=== PATIENT | female | born 1955 | race American Indian/Alaskan Native ===

== ENCOUNTER 2016-08-05 06:19 | Emergency (ER) | payer MEDICAID ==
[2016-08-05 06:33] VITALS: BP 169/103
[2016-08-05 06:55] LABS: Basophils % (Auto) 0.6 % (0.0-1.8); Eosinophils % (Auto) 4.2 % (0.0-4.3); Hematocrit 34.8 % (30.3-42.9); Mean Corpuscular HGB Conc 32 % (30-34); Mean Corpuscular Hemoglobin 28 pg (28-32); Mean Corpuscular Volume 89 fl (79-97); Platelet Count 283 K/mm3 (140-440); Red Blood Count 3.93 M/mm3 (3.65-5.03); Red Cell Distribution Width 14.1 % (13.2-15.2); White Blood Count 12.5 K/mm3 (4.5-11.0)
[2016-08-05 07:02] LABS: INR 1.6 (0.87-1.13)
[2016-08-05 07:03] LABS: Partial Thromboplastin Time 36.2 Sec. (24.2-36.6)
[2016-08-05 07:07] LABS: Anion Gap 20 mmol/L; BUN/Creatinine Ratio 8.75; Blood Urea Nitrogen 7 mg/dL (7-17); Calcium 8.8 mg/dL (8.4-10.2); Carbon Dioxide 24 mmol/L (22-30); Chloride 96.3 mmol/L (98-107); Glucose 157 mg/dL (65-100); Potassium 3.9 mmol/L (3.6-5.0); Sodium 136 mmol/L (137-145)
--- NOTE | 2016-08-06 11:46 | ED Elopement Review ---
ED Pt Elopement review - Results review Lab results: Laboratory Tests 08/05/16 08/05/16 08/05/16 06:41 06:41 06:41 WBC 12.5 H RBC 3.93 Hgb 11.0 Hct 34.8 MCV 89 MCH 28 MCHC 32 RDW 14.1 Plt Count 283 Lymph % (Auto) 20.6 [place] % (Auto) 6.8 Eos % (Auto) 4.2 Baso % (Auto) 0.6 Lymph # 2.6 [place] # 0.8 Eos # 0.5 H Baso # 0.1 Seg Neutrophils % 67.8 Seg Neutrophils # 8.5 H PT 19.0 H INR 1.60 H APTT 36.2 Sodium 136 L Potassium 3.9 Chloride 96.3 L Carbon Dioxide 24 Anion Gap 20 BUN 7 Creatinine 0.8 Estimated GFR > 60 BUN/Creatinine Ratio 8.75 Glucose 157 H Calcium 8.8 Troponin T < 0.010 - Call Back decision Pt Call Back Decision: Call pt to return to ED [facility] (patient's triage vitals showed tachycardia and hypertension, patient's labs show a subtherapeutic INR with recent pulmonary embolism)
== END 2016-08-05 06:42 | disposition left against medical advice (07) ==
LOC: ED 06:19
DX: R42 Dizziness and giddiness (principal); R53.1 Weakness; Z53.21 Procedure and treatment not carried out due to patient leaving prior to being seen by health care provider
CPT/HCPCS: 36415; 80048; 84484; 85025; 85610; 85730; 93005; 93010

== ENCOUNTER 2018-09-04 10:41 | Emergency (ER) | payer MEDICAID ==
--- NOTE | 2018-09-04 11:49 | Emergency Department Report ---
ED General Adult HPI - General Chief complaint: Dyspnea/Respdistress Stated complaint: HIGH BLOOD PRESSURE/PNEUMONIA Time Seen by Provider: 09/04/18 11:38 Source: patient Mode of arrival: Ambulatory Limitations: No Limitations - History of Present Illness Initial comments: Patient is 63 years old female, morbidly obese, history of hypertension and diabetes. Patient presented to the ER complaining of shortness of breath cough and congestion. Patient stated that she was seen at [facility] and was discharged last night from the ER after she was diagnosed with pneumonia. Patient asking to be admitted to the hospital. Triage nurse removed several Hospital arm presently it's from patient. Patient denied any chest pain, abdominal pain, nausea or vomiting. She stated that she's been having watery diarrhea for the last 2 weeks. Severity scale (0 -10): 10 - Related Data Home Medications Medication Instructions Recorded Confirmed Last Taken Cephalexin [Keflex] 500 mg PO 08/29/18 08/26/18 18:00 Enalapril Maleate [Vasotec] 10 mg PO 08/29/18 Unknown Glimepiride [Amaryl] 4 mg PO 08/29/18 Unknown Losartan Potassium 100 mg PO 08/29/18 Unknown metFORMIN [Glucophage] 500 mg 08/29/18 1 Day Ago ~08/29/18 Advair Diskus 250-50 mcg 08/30/18 08/26/18 16:00 Proventil Hfa 08/30/18 08/26/18 18:00 Previous Rx's Medication Instructions Recorded Last Taken Type ALPRAZolam [Xanax TAB] 0.25 mg PO TID PRN #14 tab 01/19/14 Unknown Rx Fluconazole [Diflucan TAB] 100 mg PO QDAY #7 tablet 01/19/14 Unknown Rx Nitrofurantoin Castro/M-Cryst 100 mg PO Q12HR #14 capsule 01/19/14 Unknown Rx [Macrobid CAP] Sertraline [Zoloft] 100 mg PO QDAY #30 tablet 01/19/14 Unknown Rx ALBUTEROL Inhaler (OR & NICU) 2 puff IH QID PRN #1 inhalation 06/16/16 Unknown Rx [ProAir HFA Inhaler] Amoxicillin/K Clav Tab [Augmentin 1 tab PO Q12HR #14 tab 06/16/16 Unknown Rx 875MG TAB] Nystatin/Triamcin (Nf) [Mycolog 1 applicatio TP BID #1 tube 06/16/16 Unknown Rx Cream] Albuterol Sulfate [Proair 90 mcg IH Q4HR PRN #2 aer.pow.ba 08/14/16 Unknown Rx Respiclick] Enoxaparin [Lovenox] 150 mg SQ QDAY #14 syringe 08/14/16 Unknown Rx Bisacodyl [Dulcolax] 5 mg PO DAILY PRN #30 tab 08/31/18 Unknown Rx hydrALAZINE [Apresoline TAB] 100 mg PO TID #120 tablet 08/31/18 Unknown Rx Allergies Allergy/AdvReac Type Severity Reaction Status Date / Time No Known Allergies Allergy Verified 06/16/16 08:20 ED Review of Systems ROS: Stated complaint: HIGH BLOOD PRESSURE/PNEUMONIA Other details as noted in HPI Comment: All other systems reviewed and negative Constitutional: denies: chills, fever ENT: congestion Respiratory: cough, shortness of breath Cardiovascular: denies: chest pain Gastrointestinal: denies: abdominal pain, nausea, vomiting Neurological: denies: headache ED Past Medical Hx - Past Medical History Previous Medical History?: Yes Hx Hypertension: Yes Hx Diabetes: Yes Hx Pulmonary Embolism: Yes (2016) Hx GERD: Yes Hx Psychiatric Treatment: No Additional medical history: OBESITY. Lung blood clot (2016), Pneumonia - Surgical History Past Surgical History?: Yes Additional Surgical History: - Social History Smoking Status: Former Smoker Substance Use Type: Prescribed - Medications Home Medications: Home Medications Medication Instructions Recorded Confirmed Last Taken Type ALPRAZolam [Xanax TAB] 0.25 mg PO TID PRN #14 tab 01/19/14 Unknown Rx Fluconazole [Diflucan TAB] 100 mg PO QDAY #7 tablet 01/19/14 Unknown Rx Nitrofurantoin Castro/M-Cryst 100 mg PO Q12HR #14 capsule 01/19/14 Unknown Rx [Macrobid CAP] Sertraline [Zoloft] 100 mg PO QDAY #30 tablet 01/19/14 Unknown Rx ALBUTEROL Inhaler (OR & NICU) 2 puff IH QID PRN #1 inhalation 06/16/16 Unknown Rx [ProAir HFA Inhaler] Amoxicillin/K Clav Tab [Augmentin 1 tab PO Q12HR #14 tab 06/16/16 Unknown Rx 875MG TAB] Nystatin/Triamcin (Nf) [Mycolog 1 applicatio TP BID #1 tube 06/16/16 Unknown Rx Cream] Albuterol Sulfate [Proair 90 mcg IH Q4HR PRN #2 aer.pow.ba 08/14/16 Unknown Rx Respiclick] Enoxaparin [Lovenox] 150 mg SQ QDAY #14 syringe 08/14/16 Unknown Rx Cephalexin [Keflex] 500 mg PO 08/29/18 08/26/18 18:00 History Enalapril Maleate [Vasotec] 10 mg PO 08/29/18 Unknown History Glimepiride [Amaryl] 4 mg PO 08/29/18 Unknown History Losartan Potassium 100 mg PO 08/29/18 Unknown History metFORMIN [Glucophage] 500 mg 08/29/18 1 Day Ago History ~08/29/18 Advair Diskus 250-50 mcg 08/30/18 08/26/18 16:00 History Proventil Hfa 08/30/18 08/26/18 18:00 History Bisacodyl [Dulcolax] 5 mg PO DAILY PRN #30 tab 08/31/18 Unknown Rx hydrALAZINE [Apresoline TAB] 100 mg PO TID #120 tablet 08/31/18 Unknown Rx ED Physical Exam - General Limitations: No Limitations General appearance: alert, in no apparent distress - Head Head exam: Present: atraumatic, normocephalic, normal inspection - Eye Eye exam: Present: normal appearance - ENT ENT exam: Present: normal exam, normal orophraynx, mucous membranes moist - Neck Neck exam: Present: normal inspection, full ROM. Absent: tenderness, meningismus, lymphadenopathy, thyromegaly - Respiratory Respiratory exam: Present: normal lung sounds bilaterally. Absent: respiratory distress, wheezes, rales, rhonchi, chest wall tenderness, accessory muscle use, decreased breath sounds, prolonged expiratory - Cardiovascular Cardiovascular Exam: Present: regular rate, normal rhythm, normal heart sounds - GI/Abdominal GI/Abdominal exam: Present: soft, normal bowel sounds. Absent: distended, tende rness, guarding, rebound, rigid, mass, bruit, pulsatile mass, hernia - Extremities Exam Extremities exam: Present: normal inspection, full ROM, normal capillary refill - Back Exam Back exam: Present: normal inspection, full ROM. Absent: muscle spasm, paraspinal tenderness - Neurological Exam Neurological exam: Present: alert, oriented X3, CN II-XII intact, normal gait, reflexes normal - Psychiatric Psychiatric exam: Present: normal mood - Skin Skin exam: Present: warm, intact, normal color ED Course Vital Signs 09/04/18 10:45 Temperature 97.6 F Pulse Rate 104 H Respiratory 20 Rate Blood Pressure 201/98 Blood Pressure 201/98 [Right] O2 Sat by Pulse 99 Oximetry - Reevaluation(s) Reevaluation #1: 09/04/18 13:52 Patient remained asymptomatic in the emergency room. I reviewed patient records from [facility] specifically CT chest angiogram which she did not show any evidence of pulmonary embolism or pneumonia. Patient labs from [place] was reviewed by me in was unremarkable. Patient was discharged home with a diagnosis of bronchiolitis. ED Medical Decision Making - Lab Data Result diagrams: 09/04/18 11:50 09/04/18 11:50 Critical care attestation.: If time is entered above; I have spent that time in minutes in the direct care of this critically ill patient, excluding procedure time. ED Disposition Clinical Impression: Hypertension, Shortness of breath Disposition: DC-01 TO HOME OR SELFCARE Is pt being admited?: No Condition: Stable Instructions: Hypertension (ED) Referrals: [facility],MED[facility] [Other] - 3-5 Days
[2018-09-04 12:19] LABS: Basophils # (Auto) 0.1 K/mm3 (0.0-0.1); Basophils % (Auto) 0.7 % (0.0-1.8); Eosinophils # (Auto) 0.3 K/mm3 (0.0-0.4); Eosinophils % (Auto) 3.7 % (0.0-4.3); Hematocrit 33.2 % (30.3-42.9); Lymphocytes % (Auto) 22.8 % (13.4-35.0); Mean Corpuscular HGB Conc 33 % (30-34); Mean Corpuscular Volume 88 fl (79-97); Monocytes # (Auto) 0.7 K/mm3 (0.0-0.8); Monocytes % (Auto) 7.7 % (0.0-7.3); Platelet Count 218 K/mm3 (140-440); Red Cell Distribution Width 15.6 % (13.2-15.2)
[2018-09-04 12:33] LABS: BUN/Creatinine Ratio 8; Blood Urea Nitrogen 7 mg/dL (7-17); Calcium 8.5 mg/dL (8.4-10.2); Hemolysis Index 2
--- NOTE | 2018-09-04 13:22 | XRay Report ---
FINAL REPORT EXAM: XR CHEST ROUTINE 2V HISTORY: cough COMPARISON: Chest radiograph performed on 08/29/2017 TECHNIQUE: Frontal and lateral views of the chest. FINDINGS: The cardiomediastinal silhouette is normal in appearance. The lungs are clear without focal consolidation. There is no pleural effusion or pneumothorax. There is no acute soft tissue or osseous abnormality. IMPRESSION: No acute cardiopulmonary disease.
[2018-09-04] MEDS ORDERED: CATAPRES PO ONE (13:59)
[2018-09-04 15:39] VITALS: BP 150/63
== END 2018-09-04 16:07 | disposition home or self-care (01) ==
LOC: ED 10:41
DX: I10 Essential (primary) hypertension (principal); R06.02 Shortness of breath; E11.9 Type 2 diabetes mellitus without complications; K21.9 Gastro-esophageal reflux disease without esophagitis
CPT/HCPCS: 36415; 71046; 80048; 85025

== ENCOUNTER 2020-10-08 20:32 | Emergency (ER) | payer MEDICAID ==
[2020-10-08 21:14] LABS: Basophils # (Auto) 0.1 K/mm3 (0.0-0.1); Basophils % (Auto) 0.9 % (0.0-1.8); Eosinophils # (Auto) 0.6 K/mm3 (0.0-0.4); Lymphocytes # (Auto) 1.4 K/mm3 (1.2-5.4); Lymphocytes % (Auto) 18.3 % (13.4-35.0); Mean Corpuscular HGB Conc 33 % (30-34); Mean Corpuscular Volume 87 fl (79-97); Monocytes # (Auto) 0.8 K/mm3 (0.0-0.8); Monocytes % (Auto) 10.4 % (0.0-7.3); Platelet Count 262 K/mm3 (140-440); Red Blood Count 2.77 M/mm3 (3.65-5.03); Red Cell Distribution Width 14.7 % (13.2-15.2)
[2020-10-08 21:33] LABS: Calcium 7.7 mg/dL (8.4-10.2)
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
[2020-10-08 22:02] LABS: Bilirubin,Urine NEG (Negative); Blood,Urine NEG (Negative); Color,Urine Yellow (Yellow); Protein,Urine >500 mg/dL (Negative); Urobilinogen,Urine < 2.0 mg/dL (<2.0); WBC,Urine < 1.0 /HPF (0.0-6.0)
[2020-10-08 22:08] LABS: Amphetamine Screen,Urine Negative; Benzodiazepines Screen,Urine Negative; Cannabinoid Screen,Urine Negative; Cocaine Screen,Urine Negative; Methadone Screen,Urine Negative; Opiate Screen,Urine Negative
[2020-10-09] MEDS ORDERED: NON-FORMULARY EACH (Albuterol Sulfate [Proair Respiclick] 90 MCG Aer.Pow.Ba) IH PRN (00:10)
[2020-10-09] MEDS ORDERED: LORazepam 1 MG TAB PO ONE (00:15)
[2020-10-09] MEDS: DIVALPROEX DR 250 MG TAB PO SCH ×3 (00:56→17:32)
[2020-10-09] MEDS: hydrALAZINE 25 MG TAB PO SCH ×3 (06:44→22:03)
[2020-10-09] MEDS: cloNIDine 0.2 MG TAB PO SCH ×3 (09:00→20:12)
[2020-10-09] MEDS: carvediloL 25 MG TAB PO SCH ×2 (09:01→17:32)
[2020-10-09] MEDS: cloNIDine 0.1 MG TAB PO SCH ×3 (09:04→20:11)
[2020-10-09] MEDS: NIFEdipine XL 90 MG TAB PO SCH (12:04)
[2020-10-09] MEDS: ASPIRIN EC 81 MG TAB PO SCH (12:04)
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
[2020-10-09] MEDS: LORazepam 1 MG TAB PO SCH (22:04)
[2020-10-09] MEDS: FAMOTIDINE 20 MG TAB PO SCH (22:04)
[2020-10-09] MEDS ORDERED: ACETAMINOPHEN 500 MG TAB ONE (22:43)
[2020-10-09] MEDS ORDERED: ACETAMINOPHEN 500 MG TAB PO ONE (22:48)
[2020-10-10] MEDS: DIVALPROEX DR 250 MG TAB PO SCH ×3 (01:29→20:52)
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
[2020-10-10] MEDS: cloNIDine 0.1 MG TAB PO SCH ×3 (09:49→20:56)
[2020-10-10] MEDS: cloNIDine 0.2 MG TAB PO SCH ×3 (09:49→21:03)
[2020-10-10] MEDS: carvediloL 25 MG TAB PO SCH ×2 (09:50→20:52)
[2020-10-10] MEDS: hydrALAZINE 25 MG TAB PO SCH ×3 (09:50→21:56)
[2020-10-10] MEDS: ARIPiprazole 5 MG TAB PO SCH (09:50)
[2020-10-10] MEDS: ASPIRIN EC 81 MG TAB PO SCH (10:15)
[2020-10-10] MEDS: NIFEdipine XL 90 MG TAB PO SCH (10:26)
--- NOTE | 2020-10-10 11:35 | Event Note ---
Date: 10/10/20 Spoke with the patient's daughter today. She says the patient is restless, confused and paranoid. She says they are trying to get the patient a hospital bed so she can care for her at home. She says right now that patient is having too many problems. She says the patient is scared to go to sleep, and never sleeps.
[2020-10-10] MEDS ORDERED: ZIPRASIDONE MESYLATE 20 MG VIAL IM ONE (15:02)
[2020-10-10] MEDS ORDERED: WATER FOR INJ Sterile (PF) 10 ML ONE (15:07)
[2020-10-10] MEDS ORDERED: ALBUTEROL 2.5 MG/3 ML NEBU IH PRN (15:12)
[2020-10-10] MEDS ORDERED: LORazepam 2 MG/ML VIAL IV ONE (20:29)
[2020-10-10] MEDS: FAMOTIDINE 20 MG TAB PO SCH (21:57)
[2020-10-10] MEDS: LORazepam 1 MG TAB PO SCH (21:58)
[2020-10-10] MEDS ORDERED: traZODone 50 MG TAB PO SCH (22:00)
[2020-10-11] MEDS: DIVALPROEX DR 250 MG TAB PO SCH ×2 (00:03→11:28)
[2020-10-11] MEDS: hydrALAZINE 25 MG TAB PO SCH (06:26)
[2020-10-11 07:52] VITALS: BP 188/91
[2020-10-11] MEDS: cloNIDine 0.2 MG TAB PO SCH (08:33)
[2020-10-11] MEDS: carvediloL 25 MG TAB PO SCH (08:33)
[2020-10-11] MEDS: cloNIDine 0.1 MG TAB PO SCH (08:33)
--- NOTE | 2020-10-11 09:26 | Progress Note ---
Subjective - Reason for Consult Consult date: 10/11/20 Reason for consult: confusion - Chief Complaint Chief complaint: Per ED Nurse: ED nurse called this morning and states he had spoken to the daughter, and that she secured the patient a bed in [facility]. The patient was seen today, she is lying in bed awake. She is calm and cooperative. She is confused. The patient says she slept pretty good. She says she feels okay, but got a headache. Informed the patient I had spoken to her daughter yesterday. She says "Oh, you did? She's not trying to put me away?" The patient denies SI/HI. She says "I never was." She also denies hallucinations of any kind. REVIEW OF SYSTEMS Constitutional: Negative for weight loss ENT: Negative for stridor Respiratory: Negative for cough or hemoptysis All other systems reviewed and are negative MENTAL STATUS EXAMINATION General Appearance and Behavior: Age appropriate, good hygiene, not wearing appropriate clothes, good eye contact, cooperative polite with questioning. 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 PSYCHOTHERAPY: Supportive psychotherapy provided MEDICAL: Per primary team DELIRIUM PRECAUTIONS: Please re-orient patient frequently, keep lights on during the day, and minimize benzodiazepines and opiates as these medications could worsen patient's confusion. WINERY CELLAR HAND: Defer to primary DISPOSITION: Do not Recommend acute inpatient psychiatric hospitalization at this time. Case discussed with Dr. Atwood who agrees with current disposition FOLLOW-UP: Will sing off. Thank you for the consult. Please contact with any questions and/or concerns. Mental Status Exam - Vital signs Last Vital Signs Temp 98.0 F 10/11/20 07:51 Pulse 80 10/11/20 07:51 Resp 18 10/11/20 07:51 BP 188/91 10/11/20 07:51 Pulse Ox 96 10/11/20 07:51
[2020-10-11] MEDS: ASPIRIN EC 81 MG TAB PO SCH (11:28)
[2020-10-11] MEDS: ARIPiprazole 5 MG TAB PO SCH (11:28)
== END 2020-10-11 15:08 | disposition home or self-care (01) ==
LOC: ED 20:32
DX: I13.0 Hypertensive heart and chronic kidney disease with heart failure and stage 1 through stage 4 chronic kidney disease, or unspecified chronic kidney disease (principal); N18.9 Chronic kidney disease, unspecified; I50.9 Heart failure, unspecified; F22 Delusional disorders; R45.851 Suicidal ideations; G30.9 Alzheimer's disease, unspecified; Z88.8 Allergy status to other drugs, medicaments and biological substances; Z20.822 Contact with and (suspected) exposure to COVID-19; Z79.899 Other long term (current) drug therapy
CPT/HCPCS: 36415; 80048; 80307; 81001; 82962; 85025; 96372; 96374; 99285; A9270; J2060; J3486; U0003; 80320; G0480; J3246